=== PATIENT | male | born 2000 | race Two or more races ===

== ENCOUNTER 2021-11-13 19:08 | Emergency (ER) | payer MEDICAID ==
[~2021-11-13] VITALS: Ht 193 cm; Wt 127.0 kg
--- NOTE | 2021-11-13 20:28 | NUR ---
Dr Hernandez at bedside, MSE in progress.
[2021-11-13] MEDS ORDERED: DICY20TA11 PO (20:36)
[2021-11-13] MEDS ORDERED: DICYCLOMINE HCL LIQ 10 MG/5 ML UDC ONE (20:40)
--- NOTE | 2021-11-13 20:44 | NUR ---
Patient discharged to home in stable condition. Written and verbal after care instructions given. Patient verbalizes understanding of instructions. Stressed follow up or return to ER for worsening s/s. pt ambulated with steady gait. denies pain. no SOB. no chest pain.
[2021-11-13] MEDS ORDERED: DICYCLOMINE HCL LIQ 10 MG/5 ML UDC PO ONE (20:45)
[2021-11-13 20:46] VITALS: BP 144/92
== END 2021-11-13 20:46 | disposition home or self-care (01) ==
LOC: ER 19:11
DX: R19.7 Diarrhea, unspecified (principal); R05.9 Cough, unspecified; J02.9 Acute pharyngitis, unspecified; Z20.822 Contact with and (suspected) exposure to COVID-19; R03.0 Elevated blood-pressure reading, without diagnosis of hypertension
CPT/HCPCS: A4663

== ENCOUNTER 2024-11-04 19:03 | Emergency (ER) | payer MEDICAID ==
[~2024-11-04] VITALS: Ht 193 cm; Wt 136.1 kg
[~2024-11-04 19:03] MED LIST: DICY20TA11 PO
[2024-11-04] MEDS ORDERED: FLUT16SP16 BNOSTRILS (19:31)
[2024-11-04] MEDS ORDERED: ONDA4TAB11 PO (19:31)
[2024-11-04] MEDS ORDERED: D-ME473S47 PO (19:31)
[2024-11-04] MEDS ORDERED: KETOROLAC TROMETHAMINE 30 MG INJ ONE (19:36)
[2024-11-04] MEDS ORDERED: ONDANSETRON ODT 4 MG TAB.RAPDIS ONE (19:36)
[2024-11-04] MEDS: KETOROLAC TROMETHAMINE 30 MG INJ IM ONE (19:42)
[2024-11-04] MEDS: ONDANSETRON ODT 4 MG TAB.RAPDIS SL ONE (19:42)
[2024-11-04 20:01] VITALS: BP 140/78; O2SAT 96
== END 2024-11-04 20:02 | disposition home or self-care (01) ==
LOC: ER 19:05
DX: J06.9 Acute upper respiratory infection, unspecified (principal); B34.9 Viral infection, unspecified; A08.4 Viral intestinal infection, unspecified; R03.0 Elevated blood-pressure reading, without diagnosis of hypertension; H83.8X9 Other specified diseases of inner ear, unspecified ear
CPT/HCPCS: 99283; 96372; J1885; A4606; A4663; Q0162